=== PATIENT | male | born 1990 | race Caucasian/White ===

== ENCOUNTER 2022-10-29 06:30 | Emergency (ER) | payer BC, SELFPAY ==
[2022-10-29 06:35] VITALS: BP 137/96; PULSE 68; RESP 20; TEMP 35.8; O2SAT 100
--- NOTE | 2022-10-29 07:56 | ED.NECK ---
HPI - Neck Pain/Injury General Chief Complaint: Neck Injury/Pain Stated Complaint: Neck pain/spasm left side Time Seen by Provider: 10/29/22 06:50 History of Present Illness HPI Narrative: 31-year-old young man with history of cervical dystonia presents to the emergency department evidently in a flare of pain and spasm. He has been attending physical therapy and was recommended for Pilates. During stretching/working out felt something pull hot feeling in the left side of his neck and has been increasing uncomfortable with worsening spasms. Exacerbation of tics he says. Will be traveling, flying [place] to visit girlfriend, in about 36 hours or so and very anxious for relief. No radiating symptoms in the upper extremities Related Data Allergies Allergy/AdvReac Type Severity Reaction Status Date / Time celecoxib [From Celebrex] AdvReac Intermediate Verified 10/29/22 06:40 Review of Systems Status of ROS: Reports: 6 or more systems reviewed and unremarkable except as noted in History and below PFSH PFS Social History Smoking Status: Never smoker How often do you have a drink containing alcohol: never AUDIT-C Alcohol total score: 0 Non-prescribed substance use: denies use service: No Exam Narrative: Exam Narrative: Pleasant. Anxious. Frequent flexion/movement/twitching of head and neck. Speaking easily. Breathing easily. Is atraumatic. Examination of the neck without midline tenderness. Palpation of the left paracervical and trapezial musculature I do not feel spasm in or mass necessarily but even light touch is painful and amplified is the intensity and frequency of these neck and head spasm/jerking. Const: Vital Signs, click to edit/add: Vital Signs - 24 hr 10/29/22 06:35 10/29/22 08:13 Temperature 96.4 F L 97.6 F Pulse Rate [Left P ulse Oximeter] 68 78 Respiratory Rate 20 18 Blood Pressure [Ri ght Upper Arm] 137/96 H 132/82 Pulse Oximetry 100 99 Oxygen Delivery Me thod Room Air Room Air Documenting provider has reviewed patient's vital signs: yes Course Vital Signs Vital signs: Initial Vital Signs Temperature 96.4 F L 10/29/22 06:35 Temperature Source Temporal Artery Scan 10/29/22 06:35 Pulse Rate 68 10/29/22 06:35 Pulse Rhythm 01/18/23 06:35 Respiratory Rate 20 10/29/22 06:35 Blood Pressure 137/96 H 10/29/22 06:35 Blood Pressure Mean 109 10/29/22 06:35 Blood Pressure Position Semi-Fowlers 10/29/22 06:35 Pulse Oximetry 100 10/29/22 06:35 Oxygen Delivery Method 10/29/22 06:35 Vital Signs Temperature 96.4 F L 10/29/22 06:35 Pulse Rate 68 10/29/22 06:35 Respiratory Rate 20 10/29/22 06:35 Blood Pressure 137/96 H 10/29/22 06:35 Pulse Oximetry 100 10/29/22 06:35 Oxygen Delivery Method 10/29/22 06:35 Temperature 97.6 F 10/29/22 08:13 Pulse Rate 78 10/29/22 08:13 Respiratory Rate 18 10/29/22 08:13 Blood Pressure 132/82 10/29/22 08:13 Pulse Oximetry 99 10/29/22 08:13 Oxygen Delivery Method 10/29/22 08:13 MDM - Neck Pain/Injury MDM Narrative Medical decision making narrative: We discussed option for treatment relief. He would like steroid injection. I am not sure where this would have been placed without some sort of guidance. I would suspect facet injections. I did offer opiate level pain management as an alternative though he says he has heard that can be addictive in would be concerned about it, also discussed potential benefit of anesthetic injection/trigger point. He would like to proceed with this ultimately. Informed consent obtained. This though was rather concerning to David, the potential risks. I discussed that this would be similar risks with any deep injection like this, including as prior. He decided to proceed. Area was cleansed with alcohol and in 3 points as indicated by David in the left paracervical musculature I injected around 1/2 mL of 0.25% bupivacaine. This did result in relief of his symptoms. After departure did reach out to Dr. Pham who will be contacting David to see if sooner appointment would be possible. Discharge Plan Discharge Clinical Impression: Muscle spasms of neck, Cervical dystonia Patient Disposition: Home, Self-Care Condition: Improved Additional Instructions: hoping that these injections at least have given your muscles space to relax. Might continue with cold packs or warm packs as you probably know what works best by now. rest as able today. I will leave a message for Dr. Pham safe travels Follow Up/Referrals: Provider,Not a Local [Primary Care Provider] - Stand Alone Forms: [facility] Info Instructions
[2022-10-29 08:13] VITALS: BP 132/82; PULSE 78; RESP 18; TEMP 36.4; O2SAT 99
== END 2022-10-29 08:14 | disposition home or self-care (01) ==
PROVIDERS: Emergency Provider Family Medicine
DX: G24.3 Spasmodic torticollis (principal); M62.838 Other muscle spasm
CPT/HCPCS: 20553; 99283; 99284